=== PATIENT | female | born 1995 | race Caucasian/White ===

== ENCOUNTER 2021-10-05 03:44 | Emergency (ER) | payer SELFPAY ==
[~2021-10-05] VITALS: Ht 160 cm; Wt 72.6 kg
--- NOTE | 2021-10-05 04:01 | NUR ---
PT BIBSISTER. HEAD TRAUMA +KO X1 EPISSODE VOMMTING. ADMITS TO DRINKING TONIGHT NEUROCHECK DONE A/OX4 WNL. PT TOLERATING R/A WELL WITH NO SOB
--- NOTE | 2021-10-05 04:39 | NUR ---
URINE COLLECTED AND SENT TO LAB
[2021-10-05 04:44] LABS: BILIRUBIN,URINE NEGATIVE (NEGATIVE); COLOR,URINE YELLOW (YELLOW); LEUKOCYTE ESTERASE ,URINE NEGATIVE (NEGATIVE); NITRITE, URINE NEGATIVE (NEGATIVE); PH,URINE 5.5 (5.0-8.0); PROTEIN,URINE NEGATIVE (NEGATIVE); UGLUCOSE NEGATIVE (NEGATIVE); UROBILINOGEN,URINE 0.2 EU/dL (0.2)
[2021-10-05 05:47] LABS: BASOPHILS % (AUTO) 0.8 % (0.0-2.0); EOSINOPHILS % (AUTO) 1.2 % (0.0-6.0); HEMATOCRIT 41 % (33-45); HEMOGLOBIN 13.4 g/dL (11.5-14.8); LYMPHOCYTES # (AUTO) 1.1 K/uL (0.8-4.8); LYMPHOCYTES % (AUTO) 27.1 % (20.0-44.0); MEAN CORPUSCULAR HGB CONC 33 g/dl (31.0-36.0); MEAN CORPUSCULAR VOLUME 89 fL (82-100); MONOCYTES # (AUTO) 0.3 K/uL (0.1-1.30); MONOCYTES % (AUTO) 6.2 % (2.0-12.0); NEUTROPHILS # (AUTO) 2.7 K/uL (1.8-8.9); NEUTROPHILS % (AUTO) 64.7 % (43.0-81.0); PLATELET COUNT (AUTO) 259 K/uL (150-450); RED BLOOD CELL COUNT(AUTO) 4.58 MIL/uL (4.0-5.2); WHITE BLOOD COUNT (AUTO) 4.2 K/uL (4.3-11.0)
[2021-10-05 06:13] LABS: CALCIUM, SERUM 8.6 mg/dL (8.5-10.1); CREATININE 0.6 mg/dL (0.6-1.3); POTASSIUM 3.9 mmol/L (3.5-5.1)
[2021-10-05] MEDS ORDERED: NAPR-1164 PO (07:39)
[2021-10-05] MEDS ORDERED: ACET-2605 PO (07:39)
[2021-10-05] MEDS ORDERED: ACETAMINOPHEN 325 MG TABLET ONE (07:40)
--- NOTE | 2021-10-05 07:44 | NUR ---
Patient discharged to home in stable condition. Written and verbal after care instructions given. Patient verbalizes understanding of instruction.
[2021-10-05 07:51] VITALS: BP 123/67
[2021-10-05 07:58] LABS: BACTERIA,URINE Rare /HPF (None Seen); RBC,URINE 0-2 /HPF (0-2); WBC,URINE 0-2 /HPF (0-3)
[2021-10-05 07:59] LABS: SQUAMOUS EPITHELIAL CELL,UR Few /HPF (None Seen)
[2021-10-05] MEDS ORDERED: ACETAMINOPHEN 325 MG TABLET PO ONE (08:00)
== END 2021-10-05 07:52 | disposition home or self-care (01) ==
LOC: ER 03:52
DX: S09.90XA Unspecified injury of head, initial encounter (principal); F10.129 Alcohol abuse with intoxication, unspecified; Y08.89XA Assault by other specified means, initial encounter; Y93.89 Activity, other specified; Y92.89 Other specified places as the place of occurrence of the external cause; Y99.8 Other external cause status; Y90.9 Presence of alcohol in blood, level not specified
CPT/HCPCS: 36415; 70450; 80048; 80143; 80179; 80320; 81001; 82140; 84703; 85025; 99284; J7030; G0480

== ENCOUNTER 2023-10-13 12:42 | Emergency (ER) | payer OTHER ==
[~2023-10-13] VITALS: Ht 160 cm; Wt 70.3 kg
[~2023-10-13 12:42] MED LIST: ACET-2605 PO
[2023-10-13 12:49] VITALS: TEMP 98
[2023-10-13] MEDS ORDERED: KETOROLAC TROMETHAMINE 15 MG/ML VIAL ONE (13:17)
[2023-10-13] MEDS ORDERED: ACETAMINOPHEN 325 MG TABLET ONE (13:17)
[2023-10-13] MEDS: IV NS 0.9% 1,000 ML BAG IV ONE (13:28)
[2023-10-13] MEDS: KETOROLAC TROMETHAMINE 15 MG/ML VIAL IV ONE (13:29)
[2023-10-13] MEDS: ACETAMINOPHEN 325 MG TABLET PO ONE (13:30)
[2023-10-13] MEDS ORDERED: IBUP-1955 PO (13:38)
[2023-10-13] MEDS ORDERED: BENZ-13 PO (13:38)
[2023-10-13 14:54] VITALS: BP 130/84; O2SAT 98
== END 2023-10-13 14:55 | disposition home or self-care (01) ==
LOC: ER 12:54
DX: J06.9 Acute upper respiratory infection, unspecified (principal); R05.9 Cough, unspecified; R09.81 Nasal congestion; J02.9 Acute pharyngitis, unspecified; Z20.822 Contact with and (suspected) exposure to COVID-19
CPT/HCPCS: 99283; 96374; 96361; 87426; 87804 ×2; J7030; J1885